=== PATIENT | male | born 1965 | race Caucasian/White ===

== ENCOUNTER 2017-06-17 19:15 | Emergency (ER) | payer OTHER ==
[~2017-06-17] VITALS: Ht 185.4 cm; Wt 97.5 kg
[~2017-06-17 19:15] MED LIST: CEPH500C3 PO; IBUP800T23 PO; [UNRECOGNIZED DRUG - CODE] TOP
[2017-06-17 19:16] VITALS: BP 167/86; PULSE 100; RESP 16; TEMP 99.4; O2SAT 98
[2017-06-17] MEDS ORDERED: IOHEXOL 350 MG/ML 10 ML VIAL (for RAD DIAG) IVCONTRAST ONE (19:16)
[2017-06-17] MEDS ORDERED: SODIUM CHLOR 0.9% 1000 ML INJ 1,000 ML IV SCH (19:53)
[2017-06-17] MEDS ORDERED: MORPHINE SULFATE 4 MG/ML INJ IV PUSH ONE (20:00)
[2017-06-17] MEDS ORDERED: FAMOTIDINE 20 MG/2 ML VIAL IV PUSH ONE (20:00)
[2017-06-17] MEDS ORDERED: SODIUM CHLORIDE 0.9% FLUSH 10 ML FLUSH IV FLUSH PRN (20:00)
[2017-06-17] MEDS ORDERED: ONDANSETRON HCL 4 MG/2 ML VIAL IVP ONE (20:00)
[2017-06-17 20:21] LABS: BASOPHIL # 0.1 TH/MM3 (0-0.2); BASOPHIL % 0.8 % (0.0-2.0); EOSINOPHIL # 0.1 TH/MM3 (0-0.4); EOSINOPHIL % 1.1 % (0.0-4.0); HEMATOCRIT 44.2 % (39.0-51.0); HEMO FLAGS DIFF FINAL; LYMPH % 17.1 % (9.0-44.0); LYMPHOCYTE # 2.2 TH/MM3 (1.0-4.8); MEAN CELL VOLUME 92.4 FL (80.0-100.0); MEAN CORPUSCULAR HEMOGLOBIN 31.5 PG (27.0-34.0); MEAN CORPUSCULAR HGB CONC 34.1 % (32.0-36.0); MONO % 11.5 % (0.0-8.0); NEUT % 69.5 % (16.0-70.0); PLATELET COUNT 335 TH/MM3 (150-450); RED BLOOD COUNT 4.79 MIL/MM3 (4.50-5.90); RED CELL DISTRIBUTION WIDTH 13.6 % (11.6-17.2); WHITE BLOOD COUNT 12.9 TH/MM3 (4.0-11.0)
[2017-06-17 20:33] LABS: ANION GAP 7 MEQ/L (5-15); APTT (PATIENT) 30.1 SEC (24.3-30.1); AST (GOT) 12 U/L (15-37); BICARBONATE 27.9 MEQ/L (21.0-32.0); BLOOD UREA NITROGEN 22 MG/DL (7-18); CHLORIDE 106 MEQ/L (98-107); GLOMERULAR FILTRATION RATE 49 ML/MIN (>89); INTERNATIONAL NORMALIZED RATIO 1.2 RATIO; POTASSIUM 3.9 MEQ/L (3.5-5.1); PROTHROMBIN TIME - PATIENT 13.4 SEC (9.8-11.6); SODIUM (NA) 141 MEQ/L (136-145)
[2017-06-17 20:34] LABS: ALT (GPT) 23 U/L (12-78)
[2017-06-17 20:38] LABS: ALKALINE PHOSPHATASE 46 U/L (45-117); TOTAL BILIRUBIN ADULT 0.6 MG/DL (0.2-1.0)
--- NOTE | 2017-06-17 20:41 | RADRPT ---
EXAM DATE/TIME: 06/17/2017 20:02 [facility] COMPARISON: No previous studies available for comparison. INDICATIONS : Lower chest pain MEDICAL HISTORY : None. SURGICAL HISTORY : None. ENCOUNTER: Initial ACUITY: 4 - 6 days PAIN SCORE: 6/10 LOCATION: chest FINDINGS: A single view of the chest demonstrates the lungs to be symmetrically aerated without evidence of mas s, infiltrate or effusion. The cardiomediastinal contours are unremarkable. Osseous structures are intact. CONCLUSION: No acute disease. Paul Jhaveri MD on June 17, 2017 at 20:39 Board Certified Radiologist. This report was verified electronically.
--- NOTE | 2017-06-17 20:44 | PD ---
HPI Chief Complaint: Abdominal Pain Time Seen by Provider: 19:45 Travel History International Travel<30 days: No Contact w/Intl Traveler<30days: No Traveled to known affect area: No History of Present Illness HPI Patient is a 52 year old male who comes in complaining of abdominal pain. He says he has had pain for about 5 days. He says that it started in his upper abdomen and felt like gas. He says it was coming and going, but then last night , he started to have constant lower abdominal pain. He denies nausea or vomiting. He says that he is having normal bowel movements. He denies fever or chills. He is not currently having any chest pain and denies SOB. He tried taking Prevacid, but says this has not helped[facility] Past Medical History Medical History: Denies Significant Hx Tetanus Vaccination: < 5 Years Past Surgical History Surgical History: No Previous Surgery Social History Alcohol Use: No Tobacco Use: Yes Substance Use: No Allergies-Medications (Allergen,Severity, Reaction): Coded Allergies: prednisone (Verified Allergy, Severe, Hives, 06/17/17) Reported Meds & Prescriptions Reported Meds & Active Scripts Active No Active Prescriptions or Reported Medications Review of Systems Except as stated in HPI: all other systems reviewed are Neg General / Constitutional: No: Fever, Chills HENT: No: Headaches, Lightheadedness Cardiovascular: No: Chest Pain or Discomfort Respiratory: No: Cough, Shortness of Breath Gastrointestinal: Positive: Abdominal Pain, No: Vomiting, Diarrhea Genitourinary: No: Dysuria, Decreased Urinary Output Musculoskeletal: No: Edema, Pain Skin: No Rash, No Change in Pigmentation Neurologic: No: Weakness, Dizziness Physical Exam Narrative GENERAL: Awake and alert, in no acute distress. SKIN: Focused skin assessment warm/dry. HEAD: Atraumatic. Normocephalic. EYES: Pupils equal and round. No scleral icterus. ENT: Mucous membranes pink and moist. NECK: Trachea midline. No JVD. CARDIOVASCULAR: Regular rate and rhythm. No murmur appreciated. RESPIRATORY: No accessory muscle use. Clear to auscultation. Breath sounds equal bilaterally. GASTROINTESTINAL: Abdomen soft, non-tender, nondistended. MUSCULOSKELETAL: No obvious deformities. No clubbing. No cyanosis. No edema. NEUROLOGICAL: Awake and alert. No obvious cranial nerve deficits. Motor grossly within normal limits. Normal speech. PSYCHIATRIC: Appropriate mood and affect; insight and judgment normal. Data Data Last Documented VS Vital Signs Date Time Temp Pulse Resp B/P (MAP) Pulse Ox O2 Delivery O2 Flow Rate FiO2 06/17/17 19:16 99.4 100 16 167/86 (113) 98 Room Air Orders Orders Complete Blood Count With Diff (06/17/17 19:53) Comprehensive Metabolic Panel (06/17/17 19:53) Lipase (06/17/17 19:53) Prothrombin Time / Inr (Pt) (06/17/17 19:53) Act Partial Throm Time (Ptt) (06/17/17 19:53) Urinalysis - C+S If Indicated (06/17/17 19:53) Ct Abd/Pel W Iv Contrast(Rout) (06/17/17 19:53) Iv Access Insert/Monitor (06/17/17 19:53) Ecg Monitoring (06/17/17 19:53) Oximetry (06/17/17 19:53) Morphine Inj (Morphine Inj) (06/17/17 20:00) Ondansetron Inj (Zofran Inj) (06/17/17 20:00) Sodium Chlor 0.9% 1000 Ml Inj (Ns 1000 M (06/17/17 19:53) Sodium Chloride 0.9% Flush (Ns Flush) (06/17/17 20:00) Electrocardiogram (06/17/17 19:53) Chest, Single Ap (06/17/17 19:53) Famotidine Inj (Pepcid Inj) (06/17/17 20:00) Troponin I (06/17/17 19:53) Iohexol 350 Inj (Omnipaque 350 Inj) (06/17/17 19:16) Labs Laboratory Tests Test 06/17/17 20:05 06/17/17 20:35 White Blood Count 12.9 TH/MM3 Red Blood Count 4.79 MIL/MM3 Hemoglobin 15.1 GM/DL Hematocrit 44.2 % Mean Corpuscular Volume 92.4 FL Mean Corpuscular Hemoglobin 31.5 PG Mean Corpuscular Hemoglobin Concent 34.1 % Red Cell Distribution Width 13.6 % Platelet Count 335 TH/MM3 Mean Platelet Volume 7.7 FL Neutrophils (%) (Auto) 69.5 % Lymphocytes (%) (Auto) 17.1 % Monocytes (%) (Auto) 11.5 % Eosinophils (%) (Auto) 1.1 % Basophils (%) (Auto) 0.8 % Neutrophils # (Auto) 9.0 TH/MM3 Lymphocytes # (Auto) 2.2 TH/MM3 Monocytes # (Auto) 1.5 TH/MM3 Eosinophils # (Auto) 0.1 TH/MM3 Basophils # (Auto) 0.1 TH/MM3 CBC Comment DIFF FINAL Differential Comment Prothrombin Time 13.4 SEC Prothromb Time International Ratio 1.2 RATIO Activated Partial Thromboplast Time 30.1 SEC Blood Urea Nitrogen 22 MG/DL Creatinine 1.50 MG/DL Random Glucose 93 MG/DL Total Protein 8.3 GM/DL Albumin 3.5 GM/DL Calcium Level 8.8 MG/DL Alkaline Phosphatase 46 U/L Aspartate Amino Transf (AST/SGOT) 12 U/L Alanine Aminotransferase (ALT/SGPT) 23 U/L Total Bilirubin 0.6 MG/DL Sodium Level 141 MEQ/L Potassium Level 3.9 MEQ/L Chloride Level 106 MEQ/L Carbon Dioxide Level 27.9 MEQ/L Anion Gap 7 MEQ/L Estimat Glomerular Filtration Rate 49 ML/MIN Troponin I LESS THAN 0.02 NG/ML Lipase 66 U/L Urine Color YELLOW Urine Turbidity CLEAR Urine pH 5.5 Urine Specific [place] 1.011 Urine Protein 30 mg/dL Urine Glucose (UA) NEG mg/dL Urine Ketones NEG mg/dL Urine Occult Blood TRACE Urine Nitrite NEG Urine Bilirubin NEG Urine Urobilinogen LESS THAN 2.0 MG/DL Urine Leukocyte Esterase NEG Urine RBC 3 /hpf Urine WBC 4 /hpf Urine Amorphous Sediment RARE Urine Mucus FEW /lpf Microscopic Urinalysis Comment CULT NOT INDICATED MDM Medical Decision Making Medical Screen Exam Complete: Yes Emergency Medical Condition: Yes Medical Record Reviewed: Yes Interpretation(s) ECG shows NSR at 94, no ST elevation or depression, normal intervals. Differential Diagnosis Gastritis vs UTI vs GERD vs colitis Narrative Course Patient is a 52 year old male who comes in complaining of abdominal pain. Exam shows no tenderness to palpation. IV established, labs sent. Labs show slight elevation in white blood cell count to 12.9. CT abdomen and pelvis performed shows no acute abnormalities. Patient given famotidine, Zofran, 2 mg of morphine. He reports feeling better. He is advised to continue taking Prevacid and take Maalox as needed for upset stomach. [facility] Advised to return to the ED as needed for any worsening symptoms. Diagnosis Primary Impression: Abdominal pain Qualified Codes: R10.84 - Generalized abdominal pain Patient Instructions: Abdominal Pain (ED), Gastroesophageal Reflux Disease (ED) , General Instructions Additional Instructions: Continue to take Prevacid. Take Maalox as needed for upset stomach. Drink plenty of fluids. Eat a bland diet. [facility] and with [facility]ology. Return to the ED as needed for any worsening symptoms. Scripts No Active Prescriptions or Reported Meds Disposition: 01 DISCHARGE HOME Condition: Stable Vivian Hutchison MD Jun 17, 2017 20:44
[2017-06-17 21:12] LABS: BLOOD, URINE TRACE (NEG); COMMENT (UR) CULT NOT INDICATED; CULTURE IF INDICATED CULT NOT INDICATED; GLUCOSE,URINE NEG (NEG); KETONE, URINE NEG (NEG); MUCUS URINE FEW /lpf (OCC); NITRITE,URINE NEG (NEG); PH, URINE 5.5 (5.0-8.5); URINE COLOR YELLOW (YELLW/STRAW)
--- NOTE | 2017-06-17 21:30 | RADRPT ---
EXAM DATE/TIME: 06/17/2017 20:45 [facility] COMPARISON: No previous studies available for comparison. INDICATIONS : Abdomen pain past 6 days. IV CONTRAST: 95 cc Omnipaque 350 (iohexol) IV ORAL CONTRAST: Prescribed oral contrast ingested. RADIATION DOSE: 9.05 CTDIvol (mGy) MEDICAL HISTORY : None SURGICAL HISTORY : None. ENCOUNTER: Initial ACUITY: 4 - 6 days PAIN SCALE: 5/10 LOCATION: Bilateral abdomen TECHNIQUE: Volumetric scanning of the abdomen and pelvis was performed. Using automated exposure control and ad justment of the mA and/or kV according to patient size, radiation dose was kept as low as reasonably achievable to obtain optimal diagnostic quality images. DICOM format image data is available electro nically for review and comparison. FINDINGS: Mild dependent atelectasis at the lung bases. No acute findings in the liver, spleen, adrenals, kidne ys or pancreas. No bowel obstruction. No free air or free fluid. No adenopathy. No acute bony abnormality. CONCLUSION: 1. No acute findings on abdomen and pelvic CT. Appendix appears normal. Paul Jhaveri MD on June 17, 2017 at 21:20 Board Certified Radiologist. This report was verified electronically.
[2017-06-17 22:46] VITALS: O2SAT 98
--- NOTE | 2017-06-18 07:04 | EKG ---
Date Performed: 06/17/2017 Time Performed: 20:03:46 PTAGE: 52 years EKG: Sinus rhythm NORMAL ECG NO PREVIOUS TRACING DOCTOR: Jr Ugarte Interpretating Date/Time 06/18/2017 07:02:58
== END 2017-06-17 23:05 | disposition home or self-care (01) ==
LOC: NEPE 19:15
DX: R10.84 Generalized abdominal pain (principal); Z72.0 Tobacco use; R11.0 Nausea
CPT/HCPCS: 71010; 74177; 80053; 81001; 83690; 84484; 85025; 85610; 85730; 93005; 96374; 96375; 99285; J2270; J2405; J7030; Q9967

== ENCOUNTER 2017-06-18 22:42 | Emergency (ER) | payer OTHER ==
[~2017-06-18] VITALS: Ht 182.9 cm; Wt 78.0 kg
[2017-06-18 22:43] VITALS: BP 167/83; PULSE 79; RESP 16; TEMP 98.1; O2SAT 98
[2017-06-19 00:53] VITALS: BP 153/97; PULSE 84; RESP 21; O2SAT 97
[2017-06-19] MEDS ORDERED: ALUMINUM/MAGNESIUM/SIMETH 30 ML CUP PO ONE (03:15)
[2017-06-19] MEDS ORDERED: PANTOPRAZOLE SOD 40 MG DELAYED RELEASE TAB PO ONE (03:15)
[2017-06-19] MEDS ORDERED: ATROPINE/SCOPOLAM/HYOSCYAM/PB ELIXIR 10 ML CUP PO ONE (03:15)
[2017-06-19] MEDS ORDERED: PROT40TA PO (03:16)
[2017-06-19] MEDS ORDERED: CARA1TAB6 PO (03:16)
[2017-06-19] MEDS ORDERED: DICY10 PO (03:16)
--- NOTE | 2017-06-19 03:16 | PD ---
HPI Chief Complaint: Abdominal Pain Time Seen by Provider: 03:02 Travel History International Travel<30 days: No Contact w/Intl Traveler<30days: No Traveled to known affect area: No History of Present Illness HPI 52-year-old male complains abdominal pain. Patient states that the pain started 6 days ago. Patient states the pain is burning pain localized of epigastric upper abdomen and mid abdomen. Patient denies any pain radiation. Patient states that the pain is worse with eating. Patient denies any nausea vomiting diarrhea. Patient denies any fever chills. Patient was seen in emergency room yesterday and had CT scan abdomen and pelvis and blood test done. Results were normal. Patient was advised to follow local physician. Patient states that he goes to [facility]. Patient has not taking any medications since discharge yesterday. Patient states that the pain is worse after he ate this evening. PFSH Past Medical History Medical History: Denies Significant Hx Diminished Hearing: No Influenza Vaccination: No Past Surgical History Surgical History: No Previous Surgery Social History Alcohol Use: No Tobacco Use: Yes (1/2 ppd) Substance Use: No Allergies-Medications (Allergen,Severity, Reaction): Coded Allergies: prednisone (Verified Allergy, Severe, Hives, 06/19/17) Reported Meds & Prescriptions Reported Meds & Active Scripts Active No Active Prescriptions or Reported Medications Review of Systems General / Constitutional: No: Fever Eyes: No: Visual changes HENT: No: Headaches Cardiovascular: No: Chest Pain or Discomfort Respiratory: No: Shortness of Breath Gastrointestinal: Positive: Abdominal Pain Genitourinary: No: Dysuria Musculoskeletal: No: Pain Skin: No Rash Neurologic: No: Weakness Psychiatric: No: Depression Endocrine: No: Polydipsia Hematologic/Lymphatic: No: Easy Bruising Physical Exam Narrative GENERAL: Well-nourished, well-developed patient. SKIN: Focused skin assessment warm/dry. HEAD: Normocephalic. EYES: No scleral icterus. No injection or drainage. NECK: Supple, trachea midline. No JVD or lymphadenopathy. CARDIOVASCULAR: Regular rate and rhythm without murmurs, gallops, or rubs. RESPIRATORY: Breath sounds equal bilaterally. No accessory muscle use. GASTROINTESTINAL: Abdomen soft, nondistended. Patient has mild tenderness on palpation epigastric and upper abdomen. No rebound tenderness. No mass. MUSCULOSKELETAL: No cyanosis, or edema. BACK: Nontender without obvious deformity. No CVA tenderness. Neurologic exam normal. Data Data Last Documented VS Vital Signs Date Time Temp Pulse Resp B/P (MAP) Pulse Ox O2 Delivery O2 Flow Rate FiO2 06/19/17 00:53 84 21 153/97 (115) 97 Room Air 06/18/17 22:43 98.1 Orders Orders Pantoprazole (Protonix) (06/19/17 03:15) Al-Mag Hy-Si 40-40-4 Mg/Ml Liq (Mag-Al P (06/19/17 03:15) [id number] Liq ( Liq (06/19/17 03:15) MDM Medical Decision Making Medical Screen Exam Complete: Yes Emergency Medical Condition: Yes Differential Diagnosis Differential diagnosis including gastritis, PUD, pancreatitis, cholecystitis, colitis, UTI, pyelonephritis, nephrolithiasis, appendicitis. Narrative Course 52-year-old male with epigastric upper abdominal pain. Workup was negative yesterday including CT and blood tests. Maalox 30 cc by mouth. 10 cc by mouth. Protonix 40 mg by mouth. Diagnosis Primary Impression: Gastritis Qualified Codes: K29.00 - Acute gastritis without bleeding Patient Instructions: General Instructions Additional Instructions: Take medications as directed. Avoid NSAIDs. Follow up with GI specialist if persistent problem. Return if worse. Med/Other Pt SpecificInfo: Prescription(s) given Scripts Dicyclomine (Bentyl) 10 Mg Cap 10 MG PO TID Y for Bowel Management, #21 CAP 0 Refills Prov: Janes Romo MD 06/19/17 Sucralfate (Carafate) 1 Gram Tab 1 GM PO QID for Ulcer Prevention, #120 TAB 0 Refills On empty stomach Prov: Janes Romo MD 06/19/17 Pantoprazole (Protonix) 40 Mg Tab 40 MG PO DAILY for Reflux, #30 TAB 0 Refills Prov: Janes Romo MD 06/19/17 Disposition: 01 DISCHARGE HOME Condition: Stable Janes Romo MD Jun 19, 2017 03:16
== END 2017-06-19 03:28 | disposition home or self-care (01) ==
LOC: NEPD 22:42 → NEPC 06-19 03:28
DX: K29.00 Acute gastritis without bleeding (principal); Z72.0 Tobacco use
CPT/HCPCS: 99284